=== PATIENT | male | born 1970 | race Caucasian/White ===

== ENCOUNTER 2017-01-11 20:01 | Emergency (ER) | payer OTHER ==
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
[2017-01-11 21:25] LABS: CHLORIDE,CL 105 mmol/L (98-107); SODIUM,NA 144 mmol/L (136-145)
[2017-01-12 00:38] VITALS: BP 116/82
== END 2017-01-11 21:20 ==
LOC: VM.ED 20:01 → EDBD 20:01 → MERGE 20:01 → VM.ED 21:20
DX: S00.81XA Abrasion of other part of head, initial encounter (principal); F10.10 Alcohol abuse, uncomplicated; R45.851 Suicidal ideations; X58.XXXA Exposure to other specified factors, initial encounter
CPT/HCPCS: 36415; 80053; 80305; 85025; 99285; G0480; 99284-GF